=== PATIENT | male | born 1960 | race Caucasian/White ===

== ENCOUNTER 2021-02-14 08:32 | Outpatient (CLI) | payer OTHER ==
--- NOTE | 2021-02-14 16:15 | CT Report ---
PROCEDURE: Low Dose Lung Cancer Screen INDICATIONS: CURRENT SMOKER TECHNIQUE: Noncontrast low-dose 5 mm thick sections acquired from the pulmonary apices to the posterior costophr enic angles. 7 mm thick coronal and sagittal MIP reformats were then acquired. For radiation dose r eduction, the following was used: automated exposure control, adjustment of mA and/or kV according t o patient size. COMPARISON: None. FINDINGS: Image quality: Excellent. Lungs and pleura: Nonspecific 3 mm x 1 mm nodule in the right apex on series 4 image 25. Approximate ly 4 mm nodule in the central left upper lobe on series 4 image 81. Approximately 4 mm ground glass n odule in the anterior and medial right upper lobe on series 4 image 108. Moderate apical predominant centrilobular and paraseptal emphysematous changes. Mediastinum: Heart size is normal. No pericardial effusion. No mediastinal adenopathy by size crit eria. Thoracic aorta and central pulmonary arteries are normal in size. Esophagus is normal in gaurav imelda. No hiatal hernia. Bones and chest wall: No suspicious bony lesions. No vertebral body compression fractures. No axil noel or supraclavicular adenopathy by size criteria. The thyroid is normal in size and there are no incidental findings. Abdomen: Visualized upper abdomen solid organs and bowel loops appear normal in the absence of contr ast. IMPRESSION: Two groundglass nodules measuring up to 4 mm and one solid nodule measuring approximately 3 mm. Lung-RADS category 2. Continued annual low-dose screening CT of the chest is recommended. Reviewed by: Stefan Cheng MD on 02/14/2021 4:13 PM PDT Approved by: Stefan Cheng MD on 02/14/2021 4:13 PM PDT Station ID: [id number]
== END 2021-02-14 08:33 | disposition home or self-care (01) ==
LOC: DI 08:32
PROVIDERS: ATTEND Physician Assistant Medical
DX: Z12.2 Encounter for screening for malignant neoplasm of respiratory organs (principal); R91.8 Other nonspecific abnormal finding of lung field; J43.9 Emphysema, unspecified; F17.210 Nicotine dependence, cigarettes, uncomplicated

== ENCOUNTER 2023-09-25 10:18 | Outpatient (CLI) | payer BC ==
[2023-09-25 11:13] LABS: BASOPHILS # (AUTO) 0.1 10^3/uL (0.0-0.1); BASOPHILS % (AUTO) 0.9 %; EOSINOPHILS # (AUTO) 0.1 10^3/uL (0.0-0.7); EOSINOPHILS % (AUTO) 1.2 %; HCT - HEMATOCRIT 49.3 % (42.0-52.0); HGB - HEMOGLOBIN 16.2 g/dL (14.0-18.0); LYMPHOCYTES # (AUTO) 1.8 10^3/uL (1.5-3.5); LYMPHOCYTES % (AUTO) 24.1 %; MEAN CORPUSCULAR HEMOGLOBIN 31.6 pg (27.0-31.0); MEAN CORPUSCULAR HGB CONC 32.9 g/dL (32.0-36.0); MEAN CORPUSCULAR VOLUME 96.3 fL (80.0-94.0); MEAN PLATELET VOLUME 8.7 fL (7.4-11.4); MONOCYTES # (AUTO) 0.6 10^3/uL (0.0-1.0); MONOCYTES % (AUTO) 7.7 %; NEUTROPHILS # (AUTO) 4.9 10^3/uL (1.5-6.6); NEUTROPHILS % (AUTO) 65.8 %; PLT - PLATELET COUNT 323 10^3/uL (130-450); RED BLOOD COUNT 5.12 10^6/uL (4.70-6.10); RED CELL DISTRIBUTION WIDTH 11.5 % (12.0-15.0); WHITE BLOOD COUNT 7.4 x10^3/uL (4.8-10.8)
[2023-09-25 11:23] LABS: ALBUMIN 4.5 g/dL (3.2-5.5); ALBUMIN/GLOBULIN RATIO 1.8 (1.0-2.2); ALKALINE PHOSPHATASE 72 IU/L (42-121); ALT ALANINE AMINOTRANSFERASE 20 IU/L (10-60); AST ASPARTATE AMINOTRANSFERASE 16 IU/L (10-42); BILIRUBIN,TOTAL 0.8 mg/dL (0.2-1.0); BUN - BLOOD UREA NITROGEN 10 mg/dL (6-20); CALCIUM 9.3 mg/dL (8.5-10.3); CARBON DIOXIDE - CO2 28 mmol/L (21-32); CHLORIDE 105 mmol/L (101-111); CHOL/HDL RATIO 4.1 (<5.0); CHOLESTEROL 215 mg/dL; CREATININE 0.7 mg/dL (0.6-1.3); GFR - MDRD 115 (>89); GLUCOSE 109 mg/dL (74-104); HDL CHOLESTEROL 53 mg/dL; LDL CHOLESTEROL,CALCULATED 142 mg/dL; LDL/HDL RATIO 2.7 (<3.6); POTASSIUM 4.5 mmol/L (3.5-4.5); SODIUM 139 mmol/L (135-145); TRIGLYCERIDES 102 mg/dL (48-352); VLDL CHOLESTEROL 20 mg/dL
[2023-09-25 11:39] LABS: THYROID STIMULATING HORMONE 1.55 uIU/mL (0.34-5.60)
[2023-09-25 11:59] LABS: ESTIMATED AVERAGE GLUCOSE 111 mg/dL (70-100); HEMOGLOBIN A1c% 5.5 % (4.27-6.07)
== END 2023-09-25 10:19 | disposition home or self-care (01) ==
LOC: LAB 10:18
PROVIDERS: ATTEND Physician Assistant Medical
DX: Z13.9 Encounter for screening, unspecified (principal)
CPT/HCPCS: 36415; 80053; 80061; 83036; 83721; 84153; 84443; 85025

== ENCOUNTER 2023-09-30 08:54 | Outpatient (CLI) | payer BC ==
--- NOTE | 2023-10-02 11:21 | CT Report ---
PROCEDURE: Lung Cancer Screen INDICATIONS: SMOKER TECHNIQUE: A CT scan of the chest was performed. Intravenous contrast media was not administered. Images were re corded and evaluated at appropriate window settings. Reformats: axial MIP of the chest, coronal and s agittal. For radiation dose reduction, the following was used: automated exposure control, adjustment of mA and/or kV according to patient size. COMPARISON: CT chest dated 02/14/2021. CT chest images dated 02/14/2021 are not available for comparison at time of dictation. FINDINGS: Image quality: Excellent. Prior cancer history: None known Lungs and pleura: No pleural effusions. No pneumothorax. Severe emphysematous lung changes seen bila terally. Scarring of the apices. Dependent changes in the right base. 6 mm. peripleural, right middle lobe (image 51/4). 3 mm nodule in the right middle/lower lobes 49/4) 4 mm semisolid nodule in the right apex (27/4) 4 mm solid nodule in the right apex (14/4) 4 mm semisolid nodule in the left lung 44/4) 4 mm solid nodule in the left lung (53/4) Mediastinum: Heart size is normal. No pericardial effusion. No large vessel abnormality. No mediastin al adenopathy by size criteria. Coronary artery calcifications are present. Chest wall and lower neck: Thyroid is unremarkable. No axillary or supraclavicular adenopathy by size . Bones: No aggressive osseous abnormality. Upper Abdomen: Unremarkable. IMPRESSION: 1. Large number of new small bilateral pulmonary lymph nodes present, 6 mm or less. Lung-RADS 3: Probably benign; recommend [address] "Solid nodules: 6 to <8 mm at baseline OR new 4 to <6 mm nodule. "Part solid nodules: 6 mm or more with solid component of < 6 mm OR new < 6 mm lesion. 2. Non-Lung Significant Findings: . Coronary artery calcification is present Reviewed by: Clement Zavala MD on 09/30/2023 1:18 PM PST Approved by: Clement Zavala MD on 09/30/2023 1:18 PM PST Station ID: [id number]
== END 2023-09-30 08:55 | disposition home or self-care (01) ==
LOC: DI 08:54
PROVIDERS: ATTEND Physician Assistant Medical
DX: Z12.2 Encounter for screening for malignant neoplasm of respiratory organs (principal); R91.8 Other nonspecific abnormal finding of lung field; I25.10 Atherosclerotic heart disease of native coronary artery without angina pectoris; F17.210 Nicotine dependence, cigarettes, uncomplicated

== ENCOUNTER 2023-12-31 07:29 | Outpatient (CLI) | payer BC ==
[2023-12-31 08:04] LABS: ALBUMIN 4.3 g/dL (3.2-5.5); ALKALINE PHOSPHATASE 73 IU/L (42-121); ALT ALANINE AMINOTRANSFERASE 17 IU/L (10-60); AST ASPARTATE AMINOTRANSFERASE 14 IU/L (10-42); BILIRUBIN,TOTAL 0.7 mg/dL (0.2-1.0); BUN - BLOOD UREA NITROGEN 13 mg/dL (6-20); CALCIUM 9.4 mg/dL (8.5-10.3); CARBON DIOXIDE - CO2 28 mmol/L (21-32); CHLORIDE 104 mmol/L (101-111); CHOL/HDL RATIO 2.4 (<5.0); CHOLESTEROL 133 mg/dL; CREATININE 0.9 mg/dL (0.6-1.3); GFR - MDRD 86 (>89); GLUCOSE 98 mg/dL (74-104); HDL CHOLESTEROL 56 mg/dL; LDL CHOLESTEROL,CALCULATED 64 mg/dL; LDL/HDL RATIO 1.1 (<3.6); POTASSIUM 4.1 mmol/L (3.5-4.5); SODIUM 137 mmol/L (135-145); TOTAL PROTEIN 6.4 g/dL (6.4-8.9); TRIGLYCERIDES 63 mg/dL (48-352); VLDL CHOLESTEROL 13 mg/dL
== END 2023-12-31 07:30 | disposition home or self-care (01) ==
LOC: LAB 07:29
PROVIDERS: ATTEND Physician Assistant Medical
DX: B35.1 Tinea unguium (principal); E78.5 Hyperlipidemia, unspecified
CPT/HCPCS: 36415; 80053; 80061; 83721

== ENCOUNTER 2024-03-27 07:52 | Outpatient (CLI) | payer BC ==
[2024-03-27] MEDS ORDERED: iohexoL-300 100 ML VIAL ONE (08:18)
[2024-03-27 08:28] LABS: CREATININE 0.8 mg/dL (0.6-1.3)
--- NOTE | 2024-03-27 15:09 | CT Report ---
PROCEDURE: Chest W INDICATIONS: MULTIPLE LUNG NODULES CONTRAST: 100ml omni 300 TECHNIQUE: After the administration of intravenous contrast, a CT scan of the chest was performed. Images were recorded and evaluated at appropriate window settings. Reformats: axial MIP of the chest, coronal and sagittal. For radiation dose reduction, the following was used: automated exposure control, adjustme nt of mA and/or kV according to patient size. COMPARISON: CT chest on September 30, 2023. FINDINGS: Image quality: Diagnostic. Chest wall and lower neck: No thyroid nodule which requires sonographic follow up. No breast mass. No axillary or supraclavicular adenopathy by size. Mild bilateral gynecomastia. Lungs and pleura: Compared to CT chest dated September 30, 2023, no new or enlarging solid pulmonary no dules or consolidation. Multiple bilateral upper lobe predominant centrilobular pulmonary nodules hav e resolved. A few juxtapleural solid pulmonary nodules versus lymph nodes measuring up to [address] able and best seen on the MIPS constructions (series 10, image 77). Moderate apical predominant centr ilobular and paraseptal emphysema. Dependent atelectasis. No pleural effusion or pneumothorax. Patent central airways. Mediastinum: Heart size is normal. No pericardial effusion. No large vessel abnormality. Mild three-v essel coronary calcification. No mediastinal adenopathy by size criteria. Left vertebral artery hilario es directly from the aortic arch, normal variant. No filling defects in the central pulmonary vascula ture. Mild calcification of the thoracic aorta. Bones: No aggressive osseous abnormality. No acute fracture. Mild multilevel degenerative changes of the spine. Upper Abdomen: Diffuse hypoattenuation of the liver. Mild calcification of the visualized abdominal a citlaly. IMPRESSION: 1. Compared to CT chest dated September 30, 2023, no new or enlarging solid pulmonary nodule or consoli dation. Multiple bilateral upper lobe predominant centrilobular pulmonary nodules have resolved sugge stive of transient bronchiolitis of infectious or inflammatory etiology. A few juxtapleural solid pul monary nodules versus lymph nodes measuring up to 2 mm are stable. Lung RADS 2: Recommend repeat CT chest in 12 months. 2. Mild three-vessel coronary calcification. 3. Moderate emphysema. 4. Diffuse hypoattenuation of the liver which may be seen in the setting of steatosis. Reviewed by: Yair Barry MD on 03/27/2024 3:08 PM PDT Approved by: Yair Barry MD on 03/27/2024 3:08 PM PDT Station ID: [id number]
[2024-03-27] MEDS: iohexoL-300 100 ML VIAL IVP ONE (18:05)
== END 2024-03-27 07:53 | disposition home or self-care (01) ==
LOC: LAB 07:52
PROVIDERS: ATTEND Physician Assistant Medical
DX: R91.8 Other nonspecific abnormal finding of lung field (principal); I25.10 Atherosclerotic heart disease of native coronary artery without angina pectoris; J43.2 Centrilobular emphysema
CPT/HCPCS: 36415; 71260; 82565; Q9967

== ENCOUNTER 2024-05-07 09:50 | Outpatient (CLI) | payer BC ==
[2024-05-07 10:27] LABS: ALBUMIN 4.4 g/dL (3.2-5.5); ALBUMIN/GLOBULIN RATIO 1.7 (1.0-2.2); BILIRUBIN,TOTAL 0.7 mg/dL (0.2-1.0); CALCIUM 9.1 mg/dL (8.5-10.3); POTASSIUM 5.4 mmol/L (3.5-4.5)
== END 2024-05-07 09:51 | disposition home or self-care (01) ==
LOC: LAB 09:50
PROVIDERS: ATTEND Nurse Practitioner Gerontology
DX: B35.1 Tinea unguium (principal)
CPT/HCPCS: 36415; 80053